=== PATIENT | male | born 1990 | race Caucasian/White ===

== ENCOUNTER 2018-05-06 11:42 | Emergency (ER) | payer SELFPAY, MEDICAID ==
[2018-05-06] MEDS ORDERED: BUPIVACAINE HCL 0.5% 10 ML VIAL As Ordered (13:12)
[2018-05-06] MEDS: BUPIVACAINE HCL 0.5% 30 ML VIAL SC (13:15)
[2018-05-06] MEDS: AUGMENTIN 875 MG TAB PO (13:15)
== END 2018-05-06 13:24 | disposition home or self-care (01) ==
LOC: M ED 11:42
DX: K08.89 Other specified disorders of teeth and supporting structures (principal); K02.9 Dental caries, unspecified; K13.79 Other lesions of oral mucosa; F17.210 Nicotine dependence, cigarettes, uncomplicated
CPT/HCPCS: 64400

== ENCOUNTER 2018-05-07 18:17 | Emergency (ER) | payer SELFPAY ==
[2018-05-07] MEDS: LIDOCAINE VISCOUS 2% SOLN 15ML UDC SSP ×2 (21:05→21:25)
[2018-05-07] MEDS: KETOROLAC 60 MG/2 ML VIAL (J1885) IM (21:06)
== END 2018-05-07 21:51 | disposition home or self-care (01) ==
LOC: M ED 18:17
DX: K02.9 Dental caries, unspecified (principal)
CPT/HCPCS: J1885

== ENCOUNTER 2018-08-11 21:24 | Inpatient (IN) | payer MEDICAID, SELFPAY ==
[2018-08-12 00:53] LABS: HEMATOCRIT 39.3 % (42.0-52.0); HEMOGLOBIN 13.6 g/dl (13.5-17.5); MEAN CORPUSCULAR HGB CONC 34.6 g/dl (32.0-36.5); PLATELET COUNT, AUTOMATED 295 10^3/uL (150-450); RED BLOOD COUNT 4.85 10^6/uL (4.30-6.10); RED CELL DISTRIBUTION WIDTH 12.1 % (11.5-14.5); WHITE BLOOD COUNT 11.8 10^3/uL (4.0-10.0)
[2018-08-12 01:17] LABS: AMPHETAMINES LEVEL URINE NEGATIVE (NEGATIVE); BARBITURATES URINE NEGATIVE (NEGATIVE); BENZODIAZEPINES URINE NEGATIVE (NEGATIVE); CANNABINOIDS URINE NEGATIVE (NEGATIVE); COCAINE METABOLITE URINE NEGATIVE (NEGATIVE); METHADONE URINE NEGATIVE (NEGATIVE); OPIATES URINE NEGATIVE (NEGATIVE); PHENCYCLIDINE URINE NEGATIVE (NEGATIVE)
[2018-08-12 01:33] LABS: ACETAMINOPHEN LEVEL < 2.0 UG/ML (10.0-30.0); ALBUMIN 4.1 GM/DL (3.2-5.2); ALBUMIN/GLOBULIN RATIO 0.95 (1.00-1.93); ALKALINE PHOSPHATASE 134 U/L (45-117); ALT/SGPT 22 U/L (12-78); ANION GAP 6 MEQ/L (8-16); AST/SGOT 18 U/L (7-37); BILIRUBIN,DIRECT 0.1 MG/DL (0.0-0.2); BILIRUBIN,TOTAL 0.4 MG/DL (0.2-1.0); BLOOD UREA NITROGEN 16 MG/DL (7-18); CARBON DIOXIDE LEVEL 28 MEQ/L (21-32); CHLORIDE LEVEL 104 MEQ/L (98-107); CREATININE FOR GFR 0.73 MG/DL (0.70-1.30); ETHYL ALCOHOL (ETHANOL) < 0.003 % (0.000-0.010); GLOMERULAR FILTRATION RATE > 60.0 (>60); GLUCOSE, FASTING 111 MG/DL (70-100); POTASSIUM SERUM 4.1 MEQ/L (3.5-5.1); SALICYLATE LEVEL 3.3 MG/DL (5.0-30.0); SODIUM LEVEL 138 MEQ/L (136-145); TOTAL PROTEIN 8.4 GM/DL (6.4-8.2)
[2018-08-12] MEDS ORDERED: ACETAMINOPHEN TAB 650MG DOSE (2X325MG) PO (16:15)
[2018-08-12] MEDS ORDERED: MOM 30ML SUSPENSION UDC PO (16:15)
[2018-08-12] MEDS ORDERED: MAALOX 30 ML SUSP *UDC PO (16:15)
[2018-08-12] MEDS: traZODone 50 MG TAB PO (21:11)
[2018-08-13] MEDS: NICOTINE 21MG/24HR 1 EA TRANSDERMAL TD (14:58)
[2018-08-13] MEDS: traZODone 50 MG TAB PO (21:07)
[2018-08-14 07:21] LABS: HEMATOCRIT 37.2 % (42.0-52.0); HEMOGLOBIN 12.7 g/dl (13.5-17.5); MEAN CORPUSCULAR HEMOGLOBIN 28.2 pg (27.0-33.0); MEAN CORPUSCULAR HGB CONC 34.1 g/dl (32.0-36.5); MEAN CORPUSCULAR VOLUME 82.7 fl (80.0-96.0); PLATELET COUNT, AUTOMATED 196 10^3/uL (150-450); RED CELL DISTRIBUTION WIDTH 12.3 % (11.5-14.5); WHITE BLOOD COUNT 8.3 10^3/uL (4.0-10.0)
[2018-08-14] MEDS: NICOTINE 21MG/24HR 1 EA TRANSDERMAL TD (08:50)
== END 2018-08-14 11:30 | disposition home or self-care (01) | DRG 755 ==
LOC: M ED INP 08-12 16:06 → M ED 21:24 → M PSY 08-12 17:17
DX: F43.25 Adjustment disorder with mixed disturbance of emotions and conduct (principal); Z63.5 Disruption of family by separation and divorce; Z59.8 Other problems related to housing and economic circumstances; R45.851 Suicidal ideations; F17.200 Nicotine dependence, unspecified, uncomplicated; D72.829 Elevated white blood cell count, unspecified

== ENCOUNTER 2018-09-13 20:28 | Emergency (ER) | payer MEDICAID ==
[2018-09-13] MEDS: NS 1,000 ML IV (21:15)
[2018-09-13 22:06] LABS: BASO # 0.1 10^3/uL (0.0-0.2); BASO % 0.8 % (0.0-1.0); EOS # 0.2 10^3/uL (0.0-0.50); HEMATOCRIT 39.6 % (42.0-52.0); HEMOGLOBIN 13.4 g/dl (13.5-17.5); IMMATURE GRANULOCYTE % 0.5 % (0-3.0); LYMPH # 3.1 10^3/uL (1.5-6.5); LYMPH % 18.5 % (24.0-44.0); MEAN CORPUSCULAR HEMOGLOBIN 27.8 pg (27.0-33.0); MEAN CORPUSCULAR HGB CONC 33.8 g/dl (32.0-36.5); MEAN CORPUSCULAR VOLUME 82.2 fl (80.0-96.0); MONO # 1.4 10^3/uL (0.0-0.8); MONO % 8.2 % (0.0-5.0); NEUTROPHILS # 11.9 10^3/uL (1.8-7.7); PLATELET COUNT, AUTOMATED 278 10^3/uL (150-450); RED BLOOD COUNT 4.82 10^6/uL (4.30-6.10); RED CELL DISTRIBUTION WIDTH 12.8 % (11.5-14.5); WHITE BLOOD COUNT 16.8 10^3/uL (4.0-10.0)
[2018-09-13] MEDS: KETOROLAC 30 MG/ML VIAL (J1885) IV (22:30)
[2018-09-13 22:31] LABS: ERYTHROCYTE SEDIMENTATION RATE 60 mm/hr (0-15)
[2018-09-13 23:50] LABS: LACTIC ACID SEPSIS PROTOCOL 0.9 MMOL/L (0.4-2.0)
[2018-09-13 23:51] LABS: ALBUMIN 3.4 GM/DL (3.2-5.2); ALBUMIN/GLOBULIN RATIO 0.92 (1.00-1.93); ALKALINE PHOSPHATASE 99 U/L (45-117); ALT/SGPT 22 U/L (12-78); ANION GAP 6 MEQ/L (8-16); AST/SGOT 15 U/L (7-37); BILIRUBIN,DIRECT < 0.1 MG/DL (0.0-0.2); BILIRUBIN,TOTAL 0.2 MG/DL (0.2-1.0); BLOOD UREA NITROGEN 15 MG/DL (7-18); C REACTIVE PROTEIN QUANTITATIV 7.66 MG/DL (0.00-0.30); CALCIUM LEVEL 8.8 MG/DL (8.5-10.1); CARBON DIOXIDE LEVEL 29 MEQ/L (21-32); CHLORIDE LEVEL 104 MEQ/L (98-107); CREATININE FOR GFR 0.58 MG/DL (0.70-1.30); GLOMERULAR FILTRATION RATE > 60.0 (>60); GLUCOSE, FASTING 91 MG/DL (70-100); SODIUM LEVEL 139 MEQ/L (136-145); TOTAL PROTEIN 7.1 GM/DL (6.4-8.2)
[2018-09-14] MEDS: CEFTAROLINE FOSAMIL 600 MG in D5W MINI-BAG PLUS 50 ML IV (00:20)
[2018-09-14] MEDS: LIDOCAINE 2% W/EPIN INJ 20ML **PRES FREE INJ (00:21)
== END 2018-09-14 00:47 | disposition home or self-care (01) ==
LOC: M ED 09-14 00:47
DX: L02.413 Cutaneous abscess of right upper limb (principal); L03.113 Cellulitis of right upper limb
CPT/HCPCS: J1885

== ENCOUNTER 2019-02-27 02:52 | Emergency (ER) | payer MEDICAID ==
[~2019-02-27] VITALS: Ht 180.3 cm; Wt 96.4 kg
[~2019-02-27 02:52] MED LIST: ATARAX; AUGM875T28 PO; BACT800T5 PO; HYDR-3715 PO; IBUP-1114 PO; LIDO1SOL8 PO; RITA10TA; RITA20TA; TRAZ100T
[2019-02-27 03:04] VITALS: BP 165/82
[2019-02-27] MEDS ORDERED: SUBO8MIS SL (03:07)
[2019-02-27] MEDS ORDERED: BUPIVACAINE LIPOSOME/PF 1.3% 20ML VIAL (13.3MG/ML)(EXPAREL)(C9290 PER1MG) INFIL ONE (04:30)
[2019-02-27] MEDS ORDERED: AUGM500T34 PO (04:33)
[2019-02-28] MEDS ORDERED: IBUP-1022 PO (19:32)
[2019-02-28] MEDS ORDERED: KETO10TAB PO (19:37)
== END 2019-02-27 05:09 | disposition home or self-care (01) ==
LOC: M ED 02:52
DX: K03.2 Erosion of teeth (principal); Z79.891 Long term (current) use of opiate analgesic; F17.210 Nicotine dependence, cigarettes, uncomplicated
CPT/HCPCS: 99284; C9290

== ENCOUNTER 2019-02-28 18:44 | Emergency (ER) | payer MEDICAID ==
[~2019-02-28] VITALS: Ht 180.3 cm; Wt 100.0 kg
[2019-02-28 18:44] VITALS: BP 163/88
[~2019-02-28 18:44] MED LIST changes: +AUGM500T34 PO; +SUBO8MIS SL
[2019-02-28] MEDS ORDERED: BUPIVACAINE HCL 0.5% 10 ML VIAL SC ONE (19:00)
[2019-02-28] MEDS ORDERED: LIDOCAINE W/EPINEPHRINE 1% 20ML VIAL SC ONE (19:00)
[2019-02-28] MEDS ORDERED: CETACAINE SPRAY 5GM TOP ONE (19:00)
[2019-02-28] MEDS ORDERED: IBUP-1022 PO (19:32)
[2019-02-28] MEDS ORDERED: KETO10TAB PO (19:37)
[2019-02-28] MEDS ORDERED: KETOROLAC TROMETHAMINE 10 MG TAB PO ONE (19:45)
== END 2019-02-28 19:44 | disposition home or self-care (01) ==
LOC: M ED 18:44
DX: K08.89 Other specified disorders of teeth and supporting structures (principal); Z79.891 Long term (current) use of opiate analgesic

== ENCOUNTER 2020-01-18 05:27 | Emergency (ER) | payer OTHER ==
[~2020-01-18] VITALS: Ht 177.8 cm; Wt 108.7 kg
[~2020-01-18 05:27] MED LIST changes: +IBUP-1022 PO; +KETO10TAB PO; -LIDO1SOL8 PO; +LIDO2SOL17 PO
[2020-01-18] MEDS ORDERED: ARTICAINE HCL/EPINEPHRINE 4%-1:200,000 1.7ML INJ (SEPTOCAINE) SM ONE (06:00)
[2020-01-18] MEDS ORDERED: BENZOCAINE 20% GEL 9GM TUBE (ANBESOL MAX STRENGTH) TOP ONE (06:00)
[2020-01-18] MEDS ORDERED: AUGM875T28 PO (06:14)
[2020-01-18] MEDS ORDERED: AUGMENTIN 875 MG TAB PO ONE (06:15)
[2020-01-18 06:19] VITALS: BP 145/70
[2020-01-19] MEDS ORDERED: CLIN150C14 PO (10:47)
[2020-01-19] MEDS ORDERED: ONDA4TAB6 PO (10:48)
== END 2020-01-18 06:26 | disposition home or self-care (01) ==
LOC: M ED 05:27
DX: S02.5XXA Fracture of tooth (traumatic), initial encounter for closed fracture (principal); X58.XXXA Exposure to other specified factors, initial encounter; Y92.9 Unspecified place or not applicable; Y93.9 Activity, unspecified; Y99.9 Unspecified external cause status; F17.200 Nicotine dependence, unspecified, uncomplicated; Z79.899 Other long term (current) drug therapy

== ENCOUNTER → 2020-09-05 | Outpatient (CLI) | payer MEDICAID ==
[~2020-09-05] MED LIST changes: +CLIN150C14 PO; +ONDA4TAB6 PO
== END ==
LOC: M OUTALCOH 08:21
PROVIDERS: ATTEND Psychiatry & Neurology Addiction Medicine
DX: Z13.39 Encounter for screening examination for other mental health and behavioral disorders (principal); F10.20 Alcohol dependence, uncomplicated

== ENCOUNTER 2020-11-01 14:41 | Outpatient (RCR) | payer MEDICAID | END 2020-11-02 | LOC: M OUTALCOH 14:41 | PROVIDERS: ATTEND Psychiatry & Neurology Addiction Medicine | DX: F10.20 Alcohol dependence, uncomplicated (principal); F11.20 Opioid dependence, uncomplicated; Z72.0 Tobacco use ==

== ENCOUNTER 2020-11-30 11:00 | Outpatient (RCR) | payer MEDICAID ==
[~2020-11-30 11:00] MED LIST changes: -CLIN150C14 PO; +CLIN150C15 PO
== END 2020-12-03 ==
LOC: M OUTALCOH 11:00
PROVIDERS: ATTEND Psychiatry & Neurology Psychiatry
DX: F10.20 Alcohol dependence, uncomplicated (principal); F11.20 Opioid dependence, uncomplicated; Z72.0 Tobacco use

== ENCOUNTER 2020-12-20 15:00 | Outpatient (RCR) | payer MEDICAID | END 2020-12-31 | LOC: M OUTALCOH 15:00 | PROVIDERS: ATTEND Psychiatry & Neurology Psychiatry | DX: F10.20 Alcohol dependence, uncomplicated (principal); F11.20 Opioid dependence, uncomplicated; Z72.0 Tobacco use ==

== ENCOUNTER 2020-12-29 11:14 | Outpatient (RCR) | payer MEDICAID | END 2020-12-31 | LOC: M OUTALCOH 11:14 | PROVIDERS: ATTEND Psychiatry & Neurology Addiction Medicine | DX: F10.20 Alcohol dependence, uncomplicated (principal); F11.20 Opioid dependence, uncomplicated; Z72.0 Tobacco use ==

== ENCOUNTER 2021-01-30 09:00 | Outpatient (RCR) | payer MEDICAID | END 2021-01-31 | LOC: M OUTALCOH 09:00 | PROVIDERS: ATTEND Psychiatry & Neurology Psychiatry | DX: F10.20 Alcohol dependence, uncomplicated (principal); F11.20 Opioid dependence, uncomplicated; Z72.0 Tobacco use ==

== ENCOUNTER → 2021-03-09 | Outpatient (CLI) | payer MEDICAID | LOC: M OUTALCOH 09:56 | PROVIDERS: ATTEND Psychiatry & Neurology Psychiatry | DX: Z13.39 Encounter for screening examination for other mental health and behavioral disorders (principal); F10.20 Alcohol dependence, uncomplicated; F11.20 Opioid dependence, uncomplicated ==

== ENCOUNTER → 2021-03-13 | Outpatient (REF) | payer MEDICAID ==
[~2021-03-13] MED LIST changes: +MAGICMW SS; +NYST50SS
== END ==
LOC: M LAB REF 16:22
PROVIDERS: ATTEND Family Medicine Addiction Medicine
DX: J02.9 Acute pharyngitis, unspecified (principal)

== ENCOUNTER 2021-03-16 11:26 | Emergency (ER) | payer MEDICAID, OTHER ==
[~2021-03-16] VITALS: Ht 175.3 cm; Wt 103.0 kg
[~2021-03-16 11:26] MED LIST changes: -MAGICMW SS; -NYST50SS
[2021-03-16 11:27] VITALS: BP 155/93
[2021-03-16] MEDS ORDERED: NYST50SS (11:35)
[2021-03-16] MEDS ORDERED: MAGICMW SS (13:01)
== END 2021-03-16 13:19 | disposition home or self-care (01) ==
LOC: M ED 11:26
DX: B97.11 Coxsackievirus as the cause of diseases classified elsewhere (principal); F11.10 Opioid abuse, uncomplicated; F10.10 Alcohol abuse, uncomplicated; F17.200 Nicotine dependence, unspecified, uncomplicated; Z79.899 Other long term (current) drug therapy

== ENCOUNTER 2021-03-29 11:59 | Emergency (ER) | payer OTHER ==
[~2021-03-29] VITALS: Ht 172.7 cm; Wt 100.2 kg
[~2021-03-29 11:59] MED LIST changes: +MAGICMW SS; +NYST50SS
[2021-03-29 12:01] VITALS: BP 127/73
== END 2021-03-29 13:36 | disposition home or self-care (01) ==
LOC: M ED 11:59
DX: L84 Corns and callosities (principal); F11.10 Opioid abuse, uncomplicated; F10.10 Alcohol abuse, uncomplicated; F17.200 Nicotine dependence, unspecified, uncomplicated; Z79.899 Other long term (current) drug therapy

== ENCOUNTER → 2021-04-06 | Outpatient (REF) | payer OTHER | LOC: M LAB REF 17:54 | PROVIDERS: ATTEND Family Medicine Addiction Medicine | DX: F11.11 Opioid abuse, in remission (principal) ==

== ENCOUNTER → 2021-05-02 | Outpatient (RCR) | payer MEDICAID | LOC: M OUTALCOH 04-09 14:50 | PROVIDERS: ATTEND Psychiatry & Neurology Psychiatry | DX: F10.20 Alcohol dependence, uncomplicated (principal); F11.20 Opioid dependence, uncomplicated ==

== ENCOUNTER 2021-05-31 09:00 | Outpatient (RCR) | payer MEDICAID | END 2021-06-02 | LOC: M OUTALCOH 09:00 | PROVIDERS: ATTEND Psychiatry & Neurology Psychiatry | DX: F11.21 Opioid dependence, in remission (principal); F10.21 Alcohol dependence, in remission; F17.200 Nicotine dependence, unspecified, uncomplicated ==

== ENCOUNTER 2021-07-02 08:45 | Outpatient (RCR) | payer MEDICAID ==
[~2021-07-02 08:45] MED LIST changes: -CLIN150C15 PO; +CLIN150C17 PO
== END 2021-07-03 ==
LOC: M OUTALCOH 08:45
PROVIDERS: ATTEND Psychiatry & Neurology Psychiatry
DX: F11.21 Opioid dependence, in remission (principal); F10.21 Alcohol dependence, in remission; F17.200 Nicotine dependence, unspecified, uncomplicated

== ENCOUNTER 2021-07-27 08:45 | Outpatient (RCR) | payer MEDICAID | END 2021-08-02 | LOC: M OUTALCOH 08:45 | PROVIDERS: ATTEND Psychiatry & Neurology Psychiatry | DX: F10.20 Alcohol dependence, uncomplicated (principal); F11.20 Opioid dependence, uncomplicated; F17.200 Nicotine dependence, unspecified, uncomplicated ==

== ENCOUNTER 2022-08-29 10:00 | Emergency (ER) | payer MEDICAID, OTHER ==
[~2022-08-29] VITALS: Ht 177.8 cm; Wt 130.0 kg
[2022-08-29] MEDS ORDERED: GABA600T4 (10:10)
[2022-08-29] MEDS ORDERED: LISI10TA24 (10:10)
[2022-08-29] MEDS ORDERED: DOXE100CA (10:10)
[2022-08-29] MEDS ORDERED: TRAZ1TAB14 (10:10)
[2022-08-29] MEDS ORDERED: CEFDINIR 300 MG CAP (OMNICEF) PO ONE (14:25)
[2022-08-29] MEDS ORDERED: KETOROLAC TROMETHAMINE 10 MG TAB PO ONE (14:25)
[2022-08-29] MEDS ORDERED: CEFD300C41 PO (14:28)
[2022-08-29] MEDS ORDERED: KETO10TAB PO (14:28)
[2022-08-29 14:39] VITALS: BP 114/73
== END 2022-08-29 14:40 | disposition home or self-care (01) ==
LOC: M ED 10:00
DX: N39.0 Urinary tract infection, site not specified (principal); R10.9 Unspecified abdominal pain; Z87.442 Personal history of urinary calculi; F19.10 Other psychoactive substance abuse, uncomplicated; F10.10 Alcohol abuse, uncomplicated; M43.16 Spondylolisthesis, lumbar region; Z79.899 Other long term (current) drug therapy

== ENCOUNTER → 2022-10-15 | Outpatient (CLI) | payer OTHER ==
[~2022-10-15] MED LIST changes: +CEFD300C41 PO; +DOXE100CA; +GABA600T4; +LISI10TA24; +TRAZ1TAB14
[2022-10-15 12:43] LABS: BASO # 0.1 10^3/uL (0.0-0.2); EOS # 0.1 10^3/uL (0.0-0.5); EOS % 1.9 % (0.0-3.0); HEMATOCRIT 42.7 % (42.0-52.0); LYMPH # 2.1 10^3/uL (1.5-5.0); MEAN CORPUSCULAR HEMOGLOBIN 26.7 pg (27.0-33.0); MEAN CORPUSCULAR HGB CONC 32.8 g/dl (32.0-36.5); MEAN CORPUSCULAR VOLUME 81.5 fl (80.0-96.0); MONO # 0.5 10^3/uL (0.0-0.8); MONO % 8.6 % (2.0-8.0); NEUTROPHILS % 52.3 % (36.0-66.0); PLATELET COUNT, AUTOMATED 233 10^3/uL (150-450); RED BLOOD COUNT 5.24 10^6/uL (4.30-6.10); WHITE BLOOD COUNT 5.7 10^3/uL (4.0-10.0)
[2022-10-15 13:19] LABS: THYROID STIMULATING HORMONE 1.855 uIU/ML (0.55-4.78)
[2022-10-15 13:20] LABS: FREE T4 1.15 NG/DL (0.89-1.76)
[2022-10-15 13:31] LABS: HEPATITIS B CORE ANTIBODY IGM NEGATIVE (NEGATIVE)
[2022-10-15 13:42] LABS: APPEARANCE, URINE MANUAL CLOUDY (CLEAR); BILIRUBIN, URINE MANUAL NEGATIVE (NEGATIVE); BLOOD URINE MANUAL NEGATIVE (NEGATIVE); COLOR, URINE MANUAL YELLOW (YELLOW); GLUCOSE, URINE (UA) MANUAL NEGATIVE (NEGATIVE); KETONE, URINE MANUAL NEGATIVE (NEGATIVE); LEUKOCYTE ESTERASE, URINE MAN NEGATIVE (NEGATIVE); NITRITE, URINE MANUAL NEGATIVE (NEGATIVE); PROTEIN, URINE MANUAL TRACE mg/dL (NEGATIVE); SPECIFIC GRAVITY,URINE MANUAL 1.015 (1.002-1.035); UROBILINOGEN, URINE MANUAL NORMAL (NORMAL)
[2022-10-15 13:43] LABS: ALBUMIN 4.1 G/DL (3.2-5.2); ALKALINE PHOSPHATASE 121 U/L (46-116); ALT/SGPT 47 U/L (7.0-40); AST/SGOT 35 U/L (<34); BILIRUBIN,TOTAL 0.3 MG/DL (0.3-1.2); BLOOD UREA NITROGEN 16 MG/DL (9-23); CALCIUM LEVEL 9.5 MG/DL (8.5-10.1); CARBON DIOXIDE LEVEL 22 MMOL/L (20-31); CHLORIDE LEVEL 104 MMOL/L (98-107); CHOLESTEROL LEVEL 160 MG/DL (<200); CHOLESTEROL RISK RATIO 6.25 (<5); CREATININE FOR GFR 0.65 MG/DL (0.70-1.30); GLOMERULAR FILTRATION RATE > 60.0 (>60); GLUCOSE, FASTING 99 MG/DL (60-100); HDL CHOLESTEROL 25.6 MG/DL (>40); HEPATITIS B SURFACE ANTIGEN NEGATIVE (NEGATIVE); HEPATITIS C VIRUS ABY INDEX 0.1 INDEX (<0.8); LDL CHOLESTEROL 56.4 MG/DL (<100); NON-HDL-C 134 MG/DL; POTASSIUM SERUM 4.5 MMOL/L (3.5-5.1); SODIUM LEVEL 140 MMOL/L (136-145); TOTAL PROTEIN 7.9 G/DL (5.7-8.2); TRIGLYCERIDES LEVEL 390 MG/DL (<150)
[2022-10-15 14:10] LABS: AMORPHOUS SEDIMENT, URINE LARGE AMOUNT (NEGATIVE)
[2022-10-15 14:22] LABS: HEMOGLOBIN A1c 5.3 % (4.0-6.0)
== END ==
LOC: M LAB 10:37
PROVIDERS: ATTEND Physician Assistant
DX: Z02.2 Encounter for examination for admission to residential institution (principal); Z13.1 Encounter for screening for diabetes mellitus; Z13.220 Encounter for screening for lipoid disorders; I10 Essential (primary) hypertension; R53.83 Other fatigue

== ENCOUNTER → 2023-01-02 | Outpatient (CLI) | payer OTHER ==
[~2023-01-02] MED LIST changes: +LIDO15SO4 PO; -LIDO2SOL17 PO; +NYST-38; -NYST50SS
== END ==
LOC: M RAD 06:37
PROVIDERS: ATTEND Physician Assistant
DX: M25.461 Effusion, right knee (principal); M17.11 Unilateral primary osteoarthritis, right knee; R93.6 Abnormal findings on diagnostic imaging of limbs

== ENCOUNTER → 2024-12-17 | Outpatient (CLI) | payer OTHER ==
[~2024-12-17] MED LIST changes: +CEFD1CAP9 PO; -CEFD300C41 PO; +GABA-1490; -GABA600T4; -LIDO15SO4 PO; +LIDO15SO8 PO; +ONDA-282 PO; -ONDA4TAB6 PO
== END ==
LOC: M WUC 15:52
PROVIDERS: ATTEND Student in an Organized Health Care Education/Training Program
DX: M54.50 Low back pain, unspecified (principal); M43.06 Spondylolysis, lumbar region

== ENCOUNTER 2024-12-31 20:37 | Emergency (ER) | payer OTHER ==
[~2024-12-31] VITALS: Ht 180.3 cm; Wt 111.4 kg
[2024-12-31 20:40] VITALS: BP 141/92; TEMP 97.2; O2SAT 96
== END 2024-12-31 21:28 | disposition left against medical advice (07) ==
LOC: M ED 20:37
DX: Z53.21 Procedure and treatment not carried out due to patient leaving prior to being seen by health care provider (principal)

== ENCOUNTER 2025-01-07 05:02 | Emergency (ER) | payer OTHER ==
[2025-01-07 05:03] VITALS: BP 143/77; TEMP 96.5; O2SAT 96
== END 2025-01-07 06:20 | disposition left against medical advice (07) ==
LOC: M ED 05:02
DX: M54.50 Low back pain, unspecified (principal); K59.00 Constipation, unspecified; F17.200 Nicotine dependence, unspecified, uncomplicated; Z87.19 Personal history of other diseases of the digestive system; Z79.2 Long term (current) use of antibiotics; Z79.899 Other long term (current) drug therapy; Z53.9 Procedure and treatment not carried out, unspecified reason

== ENCOUNTER 2025-01-18 02:50 | Inpatient (IN) | payer OTHER ==
[~2025-01-18] VITALS: Ht 180.3 cm; Wt 105.9 kg
[~2025-01-18 02:50] MED LIST changes: -GABA-1490; +GABA-1490 PO
[2025-01-18] MEDS ORDERED: KETOROLAC 30 MG/ML 1ML VIAL IV ONE (05:40)
[2025-01-18] MEDS ORDERED: METHOCARBAMOL 1,000 MG/10 ML VIAL IV ONE (05:40)
[2025-01-18] MEDS: methocarbamoL 750 MG TAB PO ONE (06:09)
[2025-01-18] MEDS: KETOROLAC 30 MG/ML 1ML VIAL IM ONE (06:10)
[2025-01-18 09:13] LABS: BASO # 0.1 10^3/uL (0.0-0.2); BASO % 0.6 % (0.0-1.0); EOS # 0.2 10^3/uL (0.0-0.5); EOS % 2.5 % (0.0-3.0); HEMATOCRIT 31.2 % (42.0-52.0); HEMOGLOBIN 10.5 g/dl (13.5-17.5); LYMPH # 2.6 10^3/uL (1.5-5.0); LYMPH % 32.8 % (24.0-44.0); MEAN CORPUSCULAR HEMOGLOBIN 27.5 pg (27.0-33.0); MEAN CORPUSCULAR HGB CONC 33.7 g/dl (32.0-36.5); MEAN CORPUSCULAR VOLUME 81.7 fl (80.0-96.0); MONO # 0.7 10^3/uL (0.0-0.8); MONO % 9.2 % (2.0-8.0); NEUTROPHILS # 4.4 10^3/uL (1.5-8.5); NEUTROPHILS % 54.6 % (36.0-66.0); PLATELET COUNT, AUTOMATED 343 10^3/uL (150-450); RED BLOOD COUNT 3.82 10^6/uL (4.30-6.10)
[2025-01-18 09:27] LABS: ERYTHROCYTE SEDIMENTATION RATE 102 mm/hr (0-15)
[2025-01-18 09:37] LABS: ALKALINE PHOSPHATASE 144 U/L (40-129); ALT/SGPT 60 U/L (7.0-40); AST/SGOT 34 U/L (<34); BILIRUBIN,TOTAL 0.2 MG/DL (0.3-1.2); BLOOD UREA NITROGEN 14 MG/DL (9-23); C REACTIVE PROTEIN QUANTITATIV 6.74 MG/DL (<1.0); CALCIUM LEVEL 9.2 MG/DL (8.5-10.1); CARBON DIOXIDE LEVEL 29 MMOL/L (20-31); CHLORIDE LEVEL 102 MMOL/L (98-107); CREATININE FOR GFR 0.62 MG/DL (0.70-1.30); GLOMERULAR FILTRATION RATE > 60.0 (>60); GLUCOSE, FASTING 116 MG/DL (60-100); POTASSIUM SERUM 3.4 MMOL/L (3.5-5.1); SODIUM LEVEL 139 MMOL/L (136-145); TOTAL PROTEIN 7.3 G/DL (5.7-8.2)
[2025-01-18] MEDS ORDERED: MORPHINE 4 MG/ML 1ML VIAL IV ONE (11:10)
[2025-01-18] MEDS: KETOROLAC 30 MG/ML 1ML VIAL IV ONE (11:25)
[2025-01-18 12:57] LABS: AMPHETAMINES LEVEL URINE NEGATIVE (NEGATIVE)
[2025-01-18 12:59] LABS: BARBITURATES URINE NEGATIVE (NEGATIVE); BENZODIAZEPINES URINE NEGATIVE (NEGATIVE); METHADONE URINE NEGATIVE (NEGATIVE); OPIATES URINE NEGATIVE (NEGATIVE); PHENCYCLIDINE URINE NEGATIVE (NEGATIVE)
[2025-01-18 13:05] LABS: CANNABINOIDS URINE POSITIVE (NEGATIVE); COCAINE METABOLITE URINE POSITIVE (NEGATIVE)
[2025-01-18] MEDS ORDERED: HOME MED LIST COMPLETE! XX SCH (13:40)
[2025-01-18] MEDS ORDERED: ACET-683 PO (13:40)
[2025-01-18] MEDS ORDERED: SUBO12MI SL (13:40)
[2025-01-18] MEDS: ACETAMINOPHEN *IV* 1,000 MG in IV 1 EA IV ONE (18:31)
[2025-01-18] MEDS: MORPHINE 4 MG/ML 1ML VIAL IV ONE ×2 (18:31→20:50)
[2025-01-18] MEDS: HYDROMORPHONE HCL 0.5 MG/ 0.5 ML SYRINGE IV ONE (18:54)
[2025-01-18] MEDS ORDERED: PROHANCE 279.3MG/ML 15ML VIAL As Ordered ONE (19:59)
[2025-01-18] MEDS ORDERED: PROHANCE 279.3MG/ML 5ML VIAL As Ordered ONE (19:59)
[2025-01-19] MEDS ORDERED: VANCOMYCIN HCL 1,620 MG in IV FLUID PLACE HOLDER 1 EA IV SCH (01:20)
[2025-01-19] MEDS ORDERED: VANCOMYCIN HCL 2,000 MG in IV FLUID PLACE HOLDER 1 EA IV ONE (01:20)
[2025-01-19] MEDS ORDERED: MOM 30ML SUSPENSION UDC PO PRN (01:35)
[2025-01-19] MEDS ORDERED: ACETAMINOPHEN 325 MG TAB PO PRN (01:35)
[2025-01-19] MEDS ORDERED: MAALOX 30 ML SUSP *UDC PO PRN (01:35)
[2025-01-19] MEDS ORDERED: methocarbamoL 750 MG TAB PO PRN (01:40)
[2025-01-19] MEDS: KETOROLAC 30 MG/ML 1ML VIAL IV SCH ×2 (01:58→14:07)
[2025-01-19] MEDS: CEFEPIME HCL 2 GM in DEXTROSE 5% (D5W) ADV/MINI-BAG 50 ML IV SCH (02:01)
[2025-01-19] MEDS: VANCOMYCIN HCL 2,000 MG, VIAL MATE ADAPTER 1 EACH in NS 500 ML IV ONE (02:39)
[2025-01-19 02:50] VITALS: BP 128/72; TEMP 97.9; O2SAT 99
[2025-01-19] MEDS: traMADol 50 MG TAB PO PRN ×2 (03:21→12:02)
[2025-01-19 03:27] LABS: HEMATOCRIT 32.8 % (42.0-52.0); HEMOGLOBIN 10.9 g/dl (13.5-17.5); MEAN CORPUSCULAR HGB CONC 33.2 g/dl (32.0-36.5); MEAN CORPUSCULAR VOLUME 81.4 fl (80.0-96.0); PLATELET COUNT, AUTOMATED 341 10^3/uL (150-450); RED BLOOD COUNT 4.03 10^6/uL (4.30-6.10); WHITE BLOOD COUNT 8.5 10^3/uL (4.0-10.0)
[2025-01-19 03:40] LABS: INR 1.11; PROTHROMBIN TIME 14.6 SECONDS (12.5-14.5)
[2025-01-19 03:48] LABS: ERYTHROCYTE SEDIMENTATION RATE 105 mm/hr (0-15)
[2025-01-19 03:52] LABS: ALKALINE PHOSPHATASE 137 U/L (40-129); ALT/SGPT 50 U/L (7.0-40); AST/SGOT 27 U/L (<34); BILIRUBIN,TOTAL < 0.2 MG/DL (0.3-1.2); BLOOD UREA NITROGEN 11 MG/DL (9-23); C REACTIVE PROTEIN QUANTITATIV 5.52 MG/DL (<1.0); CALCIUM LEVEL 8.9 MG/DL (8.5-10.1); CARBON DIOXIDE LEVEL 28 MMOL/L (20-31); CHLORIDE LEVEL 104 MMOL/L (98-107); CREATININE FOR GFR 0.55 MG/DL (0.70-1.30); GLOMERULAR FILTRATION RATE > 60.0 (>60); GLUCOSE, FASTING 98 MG/DL (60-100); POTASSIUM SERUM 3.8 MMOL/L (3.5-5.1); SODIUM LEVEL 140 MMOL/L (136-145); TOTAL PROTEIN 7.5 G/DL (5.7-8.2)
[2025-01-19 04:07] LABS: KETONE, URINE AUTO RFX NEGATIVE (NEGATIVE); LEUKOCYTE ESTERASE UR AUTO RFX NEGATIVE (NEGATIVE); NITRITE, URINE AUTO RFX NEGATIVE (NEGATIVE); RBC, URINE AUTO RFX 1 /HPF (0-3); SQUAM EPITHELIAL CELL UR AURFX 0 /HPF (0-6); WBC, URINE AUTO RFX 0 /HPF (0-3)
[2025-01-19 04:17] VITALS: O2SAT 95
[2025-01-19 04:27] LABS: PROCALCITONIN 0.05 ng/ml
[2025-01-19 04:31] LABS: HEPATITIS B SURFACE ANTIGEN NEGATIVE (NEGATIVE)
[2025-01-19 04:43] LABS: HIV 1&2 SCREEN NEGATIVE (NEGATIVE)
[2025-01-19 04:51] LABS: HEPATITIS C VIRUS ABY INDEX 0.04 INDEX (<0.8)
[2025-01-19 04:52] LABS: HEPATITIS B CORE ANTIBODY IGM NEGATIVE (NEGATIVE)
[2025-01-19] MEDS: HEPARIN SOD (PORCINE) 5000UNITS/ML 1ML VIAL/SYRINGE SC SCH (05:30)
[2025-01-19] MEDS: NICOTINE 21MG/24HR 1 EA TRANSDERMAL TD PRN (05:30)
[2025-01-19] MEDS: GABAPENTIN 300 MG CAP PO SCH (05:30)
[2025-01-19 07:56] VITALS: BP 117/57; TEMP 97.9; O2SAT 96
[2025-01-19] MEDS: DOCUSATE SODIUM 100MG CAPSULE PO SCH (09:00)
[2025-01-19] MEDS: LIDOCAINE 5% (LIDODERM) PATCH TD SCH (09:00)
[2025-01-19] MEDS: VANCOMYCIN HCL 1,250 MG, VIAL MATE ADAPTER 1 EACH in NS 250 ML IV SCH (09:52)
[2025-01-19] MEDS: KETOROLAC 30 MG/ML 1ML VIAL IV ONE (09:52)
[2025-01-19] MEDS: BUPRENORPHINE/NALOXONE 8-2MG SUBLINGUAL TABLET(SUBOXONE) SL SCH (09:53)
[2025-01-19] MEDS: BUPRENORPHINE/NALOXONE 2-0.5MG SUBLINGUAL TABLET(SUBOXONE) SL SCH (09:55)
[2025-01-19] MEDS: methocarbamoL 750 MG TAB PO ONE (09:55)
[2025-01-19] MEDS ORDERED: VANCOMYCIN HCL 1,000 MG, VIAL MATE ADAPTER 1 EACH in NS 250 ML IV SCH (10:00)
[2025-01-19] MEDS: ACETAMINOPHEN 500 MG TAB PO SCH (12:02)
[2025-01-19 12:07] VITALS: BP 121/64; TEMP 98.1; O2SAT 97
[2025-01-19 15:07] LABS: IONIZED CALCIUM 4.6 MG/DL (4.5-5.3)
[2025-01-19 15:43] LABS: MAGNESIUM LEVEL 1.8 MG/DL (1.8-2.4); POTASSIUM SERUM 4.1 MMOL/L (3.5-5.1)
[2025-01-19 15:47] LABS: CPK CREATINE PHOSPHOKINASE 132 U/L (46-171); MB/CK RELATIVE INDEX 1.51 (< OR =4)
[2025-01-19] MEDS: POTASSIUM CHLORIDE 10MEQ SR TABLET PO ONE (15:53)
[2025-01-19] MEDS ORDERED: traMADol 50 MG TAB PO PRN (15:55)
[2025-01-19 16:00] VITALS: BP 149/69; TEMP 98.6; O2SAT 96
[2025-01-19] MEDS: methocarbamoL 750 MG TAB PO SCH (16:18)
[2025-01-19] MEDS: MAG SULF 1GM/100ML (MAG RUN) 1 GM in IV 1 EA IV ONE (16:18)
[2025-01-19] MEDS: CALCIUM GLUCONATE 1,000 MG in DEXTROSE 5% (D5W) MINI-BAG PLU 100 ML IV ONE (17:07)
[2025-01-19] MEDS: SODIUM CHLORIDE 0.9% INJ 10 ML SYR IV SCH (17:26)
[2025-01-19 19:50] VITALS: BP 122/66; TEMP 97.7; O2SAT 98
[2025-01-19] MEDS: VANCOMYCIN HCL 1,500 MG, VIAL MATE ADAPTER 1 EACH in NS 500 ML IV SCH (21:02)
[2025-01-19] MEDS: SODIUM CHLORIDE 0.9% INJ 10 ML SYR IV PRN (21:02)
[2025-01-19] MEDS: traMADol 50 MG TAB PO SCH (23:11)
[2025-01-20] VITALS (7 sets, daily range): BP systolic 107–145; BP diastolic 65–93; TEMP 97–98.1; O2SAT 94–98
[2025-01-20 06:49] LABS: HEMATOCRIT 29.9 % (42.0-52.0); HEMOGLOBIN 9.9 g/dl (13.5-17.5); MEAN CORPUSCULAR HEMOGLOBIN 27.3 pg (27.0-33.0); MEAN CORPUSCULAR HGB CONC 33.1 g/dl (32.0-36.5); MEAN CORPUSCULAR VOLUME 82.4 fl (80.0-96.0); PLATELET COUNT, AUTOMATED 259 10^3/uL (150-450); RED BLOOD COUNT 3.63 10^6/uL (4.30-6.10); WHITE BLOOD COUNT 6.9 10^3/uL (4.0-10.0)
[2025-01-20 07:24] LABS: ALBUMIN 2.6 G/DL (3.2-5.2); ALKALINE PHOSPHATASE 117 U/L (40-129); ALT/SGPT 37 U/L (7.0-40); AST/SGOT 15 U/L (<34); BILIRUBIN,TOTAL < 0.2 MG/DL (0.3-1.2); BLOOD UREA NITROGEN 12 MG/DL (9-23); CALCIUM LEVEL 8.8 MG/DL (8.5-10.1); CARBON DIOXIDE LEVEL 27 MMOL/L (20-31); CHLORIDE LEVEL 108 MMOL/L (98-107); CREATININE FOR GFR 0.51 MG/DL (0.70-1.30); GLOMERULAR FILTRATION RATE > 60.0 (>60); GLUCOSE, FASTING 108 MG/DL (60-100); MAGNESIUM LEVEL 1.8 MG/DL (1.8-2.4); POTASSIUM SERUM 4.1 MMOL/L (3.5-5.1); SODIUM LEVEL 143 MMOL/L (136-145); TOTAL PROTEIN 6.5 G/DL (5.7-8.2)
[2025-01-20] MEDS ORDERED: traMADol 50 MG TAB PO ONE (11:15)
[2025-01-20] MEDS: methocarbamoL 750 MG TAB PO SCH (11:36)
[2025-01-20] MEDS ORDERED: MORPHINE 10 MG/ML 1ML VIAL IV PRN (13:30)
[2025-01-20] MEDS: GABAPENTIN 400MG CAP PO SCH (13:58)
[2025-01-21] VITALS (7 sets, daily range): BP systolic 102–142; BP diastolic 64–84; TEMP 97.4–99.6; O2SAT 97–100
[2025-01-21] MEDS: traMADol 50 MG TAB PO PRN (00:59)
[2025-01-21 04:32] LABS: BASO # 0.1 10^3/uL (0.0-0.2); EOS # 0.3 10^3/uL (0.0-0.5); EOS % 3.8 % (0.0-3.0); HEMATOCRIT 31.8 % (42.0-52.0); HEMOGLOBIN 10.6 g/dl (13.5-17.5); LYMPH # 2.3 10^3/uL (1.5-5.0); LYMPH % 28.6 % (24.0-44.0); MEAN CORPUSCULAR HEMOGLOBIN 27.1 pg (27.0-33.0); MEAN CORPUSCULAR HGB CONC 33.3 g/dl (32.0-36.5); MEAN CORPUSCULAR VOLUME 81.3 fl (80.0-96.0); MONO # 0.6 10^3/uL (0.0-0.8); MONO % 7.6 % (2.0-8.0); NEUTROPHILS # 4.8 10^3/uL (1.5-8.5); NEUTROPHILS % 58.8 % (36.0-66.0); PLATELET COUNT, AUTOMATED 302 10^3/uL (150-450); RED BLOOD COUNT 3.91 10^6/uL (4.30-6.10); WHITE BLOOD COUNT 8.1 10^3/uL (4.0-10.0)
[2025-01-21 04:57] LABS: BLOOD UREA NITROGEN 11 MG/DL (9-23); CALCIUM LEVEL 8.9 MG/DL (8.5-10.1); CARBON DIOXIDE LEVEL 28 MMOL/L (20-31); CHLORIDE LEVEL 106 MMOL/L (98-107); CREATININE FOR GFR 0.53 MG/DL (0.70-1.30); GLOMERULAR FILTRATION RATE > 60.0 (>60); GLUCOSE, FASTING 92 MG/DL (60-100); SODIUM LEVEL 143 MMOL/L (136-145)
[2025-01-21] MEDS: MIRALAX *UNIT DOSE* 17GM PACKET PO SCH (09:00)
[2025-01-21] MEDS: SENOKOT S TAB PO SCH (09:00)
[2025-01-21] MEDS ORDERED: LIDOCAINE 1% MDV 20ML VIAL As Ordered ONE (09:30)
[2025-01-21] MEDS: MORPHINE SULFATE TAB IMM. REL. 15 MG PO ONE (09:43)
[2025-01-21] MEDS: traMADol 50 MG TAB PO ONE (13:05)
[2025-01-21] MEDS: PREGABALIN 100 MG CAP (LYRICA) PO SCH (13:05)
[2025-01-21] MEDS: GABAPENTIN 400MG CAP PO ONE (13:14)
[2025-01-21] MEDS ORDERED: traZODone 100 MG TAB PO SCH (21:00)
[2025-01-21] MEDS: GABAPENTIN 400MG CAP PO SCH (21:29)
[2025-01-21] MEDS: traZODone 100 MG TAB PO SCH (21:29)
[2025-01-22] VITALS (7 sets, daily range): BP systolic 106–133; BP diastolic 50–79; TEMP 97.5–98.8; O2SAT 94–99
[2025-01-22] MEDS: traMADol 50 MG TAB PO PRN (04:43)
[2025-01-22 05:01] LABS: BASO # 0.1 10^3/uL (0.0-0.2); EOS # 0.3 10^3/uL (0.0-0.5); EOS % 3.9 % (0.0-3.0); HEMOGLOBIN 11.2 g/dl (13.5-17.5); LYMPH # 2.5 10^3/uL (1.5-5.0); LYMPH % 31.7 % (24.0-44.0); MEAN CORPUSCULAR HEMOGLOBIN 27.1 pg (27.0-33.0); MEAN CORPUSCULAR HGB CONC 33.9 g/dl (32.0-36.5); MEAN CORPUSCULAR VOLUME 79.7 fl (80.0-96.0); MONO # 0.7 10^3/uL (0.0-0.8); MONO % 8.9 % (2.0-8.0); NEUTROPHILS # 4.2 10^3/uL (1.5-8.5); PLATELET COUNT, AUTOMATED 329 10^3/uL (150-450); RED BLOOD COUNT 4.14 10^6/uL (4.30-6.10); WHITE BLOOD COUNT 7.9 10^3/uL (4.0-10.0)
[2025-01-22 05:46] LABS: BLOOD UREA NITROGEN 12 MG/DL (9-23); CARBON DIOXIDE LEVEL 29 MMOL/L (20-31); CHLORIDE LEVEL 104 MMOL/L (98-107); CREATININE FOR GFR 0.56 MG/DL (0.70-1.30); GLOMERULAR FILTRATION RATE > 60.0 (>60); GLUCOSE, FASTING 97 MG/DL (60-100); POTASSIUM SERUM 4.1 MMOL/L (3.5-5.1); SODIUM LEVEL 144 MMOL/L (136-145)
[2025-01-22] MEDS: GABAPENTIN 400MG CAP PO SCH (11:49)
[2025-01-22] MEDS: PREGABALIN 100 MG CAP (LYRICA) PO ONE (18:47)
[2025-01-22] MEDS: traMADol 50 MG TAB PO ONE (18:47)
[2025-01-23] VITALS (8 sets, daily range): BP systolic 102–163; BP diastolic 59–98; TEMP 96.8–99.6; O2SAT 94–99
[2025-01-23 06:36] LABS: BASO # 0.1 10^3/uL (0.0-0.2); BASO % 0.8 % (0.0-1.0); EOS # 0.3 10^3/uL (0.0-0.5); EOS % 3.7 % (0.0-3.0); HEMOGLOBIN 10.1 g/dl (13.5-17.5); LYMPH # 2.1 10^3/uL (1.5-5.0); MEAN CORPUSCULAR HEMOGLOBIN 26.6 pg (27.0-33.0); MEAN CORPUSCULAR HGB CONC 32.6 g/dl (32.0-36.5); MEAN CORPUSCULAR VOLUME 81.8 fl (80.0-96.0); MONO # 0.8 10^3/uL (0.0-0.8); MONO % 10.2 % (2.0-8.0); NEUTROPHILS # 4.3 10^3/uL (1.5-8.5); NEUTROPHILS % 56.8 % (36.0-66.0); PLATELET COUNT, AUTOMATED 305 10^3/uL (150-450); RED BLOOD COUNT 3.79 10^6/uL (4.30-6.10); WHITE BLOOD COUNT 7.6 10^3/uL (4.0-10.0)
[2025-01-23 07:08] LABS: BLOOD UREA NITROGEN 14 MG/DL (9-23); CALCIUM LEVEL 8.8 MG/DL (8.5-10.1); CARBON DIOXIDE LEVEL 31 MMOL/L (20-31); CHLORIDE LEVEL 105 MMOL/L (98-107); CREATININE FOR GFR 0.52 MG/DL (0.70-1.30); GLOMERULAR FILTRATION RATE > 60.0 (>60); GLUCOSE, FASTING 105 MG/DL (60-100); POTASSIUM SERUM 4.1 MMOL/L (3.5-5.1); SODIUM LEVEL 144 MMOL/L (136-145)
[2025-01-24 00:18] VITALS: BP 123/75
[2025-01-24 01:28] VITALS: O2SAT 94
[2025-01-24 04:11] VITALS: BP 119/55; TEMP 97.2; O2SAT 94
[2025-01-24] MEDS ORDERED: LEVO1TAB40 PO (05:42)
[2025-01-24] MEDS ORDERED: PREG100CA PO (05:42)
[2025-01-24] MEDS ORDERED: GABA-1490 PO (05:42)
[2025-01-24 06:17] LABS: BASO # 0.1 10^3/uL (0.0-0.2); BASO % 1.2 % (0.0-1.0); EOS # 0.3 10^3/uL (0.0-0.5); HEMATOCRIT 31.1 % (42.0-52.0); HEMOGLOBIN 10.4 g/dl (13.5-17.5); LYMPH % 26.3 % (24.0-44.0); MEAN CORPUSCULAR HEMOGLOBIN 27.2 pg (27.0-33.0); MEAN CORPUSCULAR HGB CONC 33.4 g/dl (32.0-36.5); MEAN CORPUSCULAR VOLUME 81.4 fl (80.0-96.0); MONO # 0.8 10^3/uL (0.0-0.8); MONO % 10.4 % (2.0-8.0); NEUTROPHILS # 4.4 10^3/uL (1.5-8.5); NEUTROPHILS % 57.3 % (36.0-66.0); PLATELET COUNT, AUTOMATED 295 10^3/uL (150-450); RED BLOOD COUNT 3.82 10^6/uL (4.30-6.10); WHITE BLOOD COUNT 7.7 10^3/uL (4.0-10.0)
[2025-01-24 06:57] LABS: BLOOD UREA NITROGEN 13 MG/DL (9-23); CALCIUM LEVEL 8.9 MG/DL (8.5-10.1); CARBON DIOXIDE LEVEL 30 MMOL/L (20-31); CHLORIDE LEVEL 103 MMOL/L (98-107); CREATININE FOR GFR 0.56 MG/DL (0.70-1.30); GLOMERULAR FILTRATION RATE > 60.0 (>60); GLUCOSE, FASTING 105 MG/DL (60-100); POTASSIUM SERUM 4.2 MMOL/L (3.5-5.1); SODIUM LEVEL 141 MMOL/L (136-145)
[2025-01-24] MEDS ORDERED: DALV1SOL IV (11:58)
[2025-01-24 12:00] VITALS: BP 119/64; TEMP 97.7; O2SAT 96
[2025-01-24] MEDS: IBUPROFEN 800 MG TAB PO SCH (17:22)
[2025-01-24] MEDS: cefTRIAXone SOD 2 GM in DEXTROSE 5% (D5W) ADV/MINI-BAG 50 ML IV SCH (17:24)
[2025-01-24] MEDS ORDERED: LevoFLOXacin 750 MG TABLET PO SCH (18:00)
[2025-01-24 20:17] VITALS: BP 127/76; TEMP 97.7; O2SAT 96
[2025-01-24] MEDS ORDERED: diphenhydrAMINE 50MG CAP PO SCH (21:00)
[2025-01-24] MEDS: PREGABALIN 75 MG CAP(LYRICA) PO SCH (21:01)
[2025-01-24] MEDS: traZODone 100 MG TAB PO SCH (21:02)
[2025-01-25 03:59] VITALS: BP 103/63; TEMP 97.7; O2SAT 96
[2025-01-25 07:08] LABS: BASO # 0.1 10^3/uL (0.0-0.2); BASO % 0.7 % (0.0-1.0); EOS # 0.4 10^3/uL (0.0-0.5); EOS % 3.6 % (0.0-3.0); HEMATOCRIT 33.2 % (42.0-52.0); HEMOGLOBIN 10.8 g/dl (13.5-17.5); LYMPH # 2.2 10^3/uL (1.5-5.0); LYMPH % 21.2 % (24.0-44.0); MEAN CORPUSCULAR HEMOGLOBIN 26.5 pg (27.0-33.0); MEAN CORPUSCULAR HGB CONC 32.5 g/dl (32.0-36.5); MEAN CORPUSCULAR VOLUME 81.4 fl (80.0-96.0); MONO % 9.3 % (2.0-8.0); NEUTROPHILS # 6.6 10^3/uL (1.5-8.5); NEUTROPHILS % 64.4 % (36.0-66.0); PLATELET COUNT, AUTOMATED 333 10^3/uL (150-450); RED BLOOD COUNT 4.08 10^6/uL (4.30-6.10); WHITE BLOOD COUNT 10.2 10^3/uL (4.0-10.0)
[2025-01-25 07:51] LABS: BLOOD UREA NITROGEN 14 MG/DL (9-23); CALCIUM LEVEL 9.1 MG/DL (8.5-10.1); CARBON DIOXIDE LEVEL 28 MMOL/L (20-31); CHLORIDE LEVEL 103 MMOL/L (98-107); CREATININE FOR GFR 0.51 MG/DL (0.70-1.30); GLOMERULAR FILTRATION RATE > 60.0 (>60); GLUCOSE, FASTING 124 MG/DL (60-100); POTASSIUM SERUM 4.1 MMOL/L (3.5-5.1); SODIUM LEVEL 141 MMOL/L (136-145)
[2025-01-25] MEDS ORDERED: SUBO12MI SL (09:59)
[2025-01-25] MEDS: LevoFLOXacin 750 MG TABLET PO SCH (11:53)
== END 2025-01-25 12:59 | disposition home or self-care (01) | DRG 344 ==
LOC: M ED 02:50 → M ED INP 01-19 01:32 → M MSPAV 01-19 02:51
PROVIDERS: ADMIT Student in an Organized Health Care Education/Training Program; ATTEND General Practice
PROC: B246ZZZ Ultrasonography of Right and Left Heart (ICD-10-PCS; 2025-01-19)
PROC: 0PB43ZX Excision of Thoracic Vertebra, Percutaneous Approach, Diagnostic (ICD-10-PCS; principal; 2025-01-24 15:30)
DX: M46.24 Osteomyelitis of vertebra, thoracic region (principal); I47.20 Ventricular tachycardia, unspecified; K59.00 Constipation, unspecified; F17.290 Nicotine dependence, other tobacco product, uncomplicated; R94.5 Abnormal results of liver function studies; R82.998 Other abnormal findings in urine; E87.6 Hypokalemia; D64.9 Anemia, unspecified; G47.00 Insomnia, unspecified; E66.9 Obesity, unspecified; Z68.32 Body mass index [BMI] 32.0-32.9, adult; F11.10 Opioid abuse, uncomplicated; M46.44 Discitis, unspecified, thoracic region; M46.56 Other infective spondylopathies, lumbar region; M48.061 Spinal stenosis, lumbar region without neurogenic claudication; M48.07 Spinal stenosis, lumbosacral region; Z90.49 Acquired absence of other specified parts of digestive tract; Z79.891 Long term (current) use of opiate analgesic; Z79.899 Other long term (current) drug therapy; M46.26 Osteomyelitis of vertebra, lumbar region

== ENCOUNTER → 2025-01-25 | Outpatient (CLI) | payer OTHER ==
[~2025-01-25] VITALS: Ht 180.3 cm; Wt 105.9 kg
[~2025-01-25] MED LIST changes: +ACET-683 PO; +DALV1SOL IV; +LEVO1TAB40 PO; +PREG100CA PO; +SODIUM CHLORIDE 0.9% INJ 10 ML SYR IV PRN; +SUBO12MI SL
[2025-01-25 13:30] VITALS: BP 124/67; O2SAT 96
[2025-01-25] MEDS: DALBAVANCIN 1,500 MG in D5W 250 ML IV ONE (13:43)
[2025-01-25] MEDS: SODIUM CHLORIDE 0.9% INJ 10 ML SYR IV SCH (13:44)
[2025-01-25 14:30] VITALS: BP 117/70; O2SAT 96
== END ==
LOC: M INFU 13:08
PROVIDERS: ATTEND General Practice
DX: M46.24 Osteomyelitis of vertebra, thoracic region (principal)
CPT/HCPCS: 96365; 96375; J0875; J1642

== ENCOUNTER → 2025-02-02 | Outpatient (CLI) | payer OTHER ==
[~2025-02-02] MED LIST changes: -SODIUM CHLORIDE 0.9% INJ 10 ML SYR IV PRN
[2025-02-02 16:35] VITALS: BP 142/80; O2SAT 99
[2025-02-02] MEDS: DALBAVANCIN 1,500 MG in D5W 250 ML IV ONE (18:00)
[2025-02-02 18:29] VITALS: BP 132/76; O2SAT 93
== END ==
LOC: M INFU 16:30
PROVIDERS: ATTEND General Practice
DX: M46.24 Osteomyelitis of vertebra, thoracic region (principal)
CPT/HCPCS: 96365; J0875

== ENCOUNTER 2025-08-21 00:26 | Emergency (ER) | payer OTHER ==
[~2025-08-21] VITALS: Ht 177.8 cm; Wt 123.6 kg
[~2025-08-21 00:26] MED LIST changes: -IBUP-1022 PO; +IBUP600T42 PO; +PREG-35 PO; -PREG100CA PO
[2025-08-21] MEDS ORDERED: IBUP80TA PO (00:38)
[2025-08-21] MEDS ORDERED: CLIN-250 PO (00:38)
[2025-08-21] MEDS ORDERED: METR-265 PO (02:35)
[2025-08-21] MEDS ORDERED: KETO-204 PO (02:35)
[2025-08-21] MEDS ORDERED: AMOX500C PO (02:35)
[2025-08-21] MEDS: KETOROLAC 30 MG/ML 1 ML VIAL IM ONE (03:03)
[2025-08-21] MEDS: AMOXICILLIN 500 MG CAP PO ONE (03:03)
[2025-08-21 03:08] VITALS: BP 131/60; TEMP 98.6; O2SAT 95
== END 2025-08-21 03:09 | disposition home or self-care (01) ==
LOC: M ED 00:26
DX: K04.7 Periapical abscess without sinus (principal); F19.11 Other psychoactive substance abuse, in remission; Z79.1 Long term (current) use of non-steroidal anti-inflammatories (NSAID); Z79.2 Long term (current) use of antibiotics; Z79.899 Other long term (current) drug therapy
CPT/HCPCS: 96372; 99283; J1885